=== PATIENT | female | born 1960 | race Caucasian/White ===

== ENCOUNTER 2016-12-06 00:51 | Day surgery (SDC) | payer OTHER ==
[2016-12-06] VITALS (11 sets, daily range): BP systolic 113–122; BP diastolic 58–63; PULSE 66–73; RESP 16–17; O2SAT 93–97
[~2016-12-06 00:51] MED LIST: ASPI-973 PO; BISA10SU61 RC; CITA20TA PO; DULO30CA50 PO; FLAV3.7O MC; GABA-502 PO; HYDR-4003 PO; INSU100C11 SUBQ; INSU100I13 SUBQ; OMEP20CA11 PO; PHEN1TAB PO; PROM25TA14 PO; TURM500C7 PO
[2016-12-06] MEDS ORDERED: 0.9% Sodium Chloride 1,000 ML IV ONE ×2 (06:40→16:02)
[2016-12-06 13:40] LABS: BASOPHILS % (AUTO) 0.2 % (0-3); EOSINOPHILS % (AUTO) 1.7 % (0-5); MONOCYTES % (AUTO) 8.3 % (4-12); Mean Corpuscular Hemoglobin 27.9 pg (27.0-35.0); Mean Corpuscular Volume 84.7 fL (81-100); NEUTROPHILS % (AUTO) 66.9 % (40-74); Platelet Count 387 bil/L (150-400)
[2016-12-06 13:53] LABS: INR 0.95 ratio
[2016-12-06] MEDS ORDERED: CINN1CAP PO (13:59)
[2016-12-06] MEDS ORDERED: 0.9% Sodium Chloride 1,000 ML ONE (14:35)
[2016-12-06] MEDS ORDERED: Heparin 5,000 Units/500 mL NS Premix IV ONE (15:10)
[2016-12-06] MEDS ORDERED: Heparin 1,000 Units/500 mL NS Premix IV ONE (15:10)
--- NOTE | 2016-12-06 15:15 | NUR ---
Admitted today for an heart cath today for ongoing chest pressure that has been happening for months and a + stress test study. Pt understands today's procedure and is ready to go to manufacturing laborer. NSR rates in the 70's.
[2016-12-06] MEDS ORDERED: fentaNYL-PF 50 mCg/mL 2 mL Inj ONE (15:18)
[2016-12-06] MEDS ORDERED: HYDROcodone-APAP 5-325 mg Tablet PO PRN (16:05)
[2016-12-06] MEDS ORDERED: Ondansetron 2 mg/mL 2 mL Inj IVPUSH PRN (16:05)
--- NOTE | 2016-12-06 16:31 | PCM.CVCATH ---
Cardiac Cath Report Date of Service Dec 06, 2016 Primary Indication This is a 56-year-old female with chest pain and recent myocardial perfusion study showing partially reversible perfusion defect. Patient is here for coronary angiogram to delineate her coronary anatomy and decide on long-term management. Procedure 1. Left heart catheterization 2. Left ventricular angiogram 3. Selective coronary angiogram 4. Right femoral angiogram Vascular Access Right common femoral artery Procedure Details The patient was brought into the catheterization laboratory. The patient was nothing by mouth since midnight. The patient was prepped and sterilized in the appropriate fashion. Local anesthetic was given to the right groin region with lidocaine 1%. A percutaneous stick to the right groin region with an 18-gauge Seldinger needle was attempted. A 6 Lao sheath was inserted into the right femoral artery. A 6 Lao FL 4 diagnostic catheter was advanced and engaged into the left main. The left coronary angiography was performed in multiple views. The catheter was exchanged over the wire for a 6 Lao FR4 diagnostic catheter. The catheter was engaged in the right coronary ostium and the right coronary angiography was performed in multiple views. The catheter was removed over the wire and exchanged for 6 Lao angle pigtail catheter. LV hemodynamics were recorded. Left ventricular angiography was performed at 12 mL /s for total 30 mL of contrast. LV pullback was performed. All catheters were removed. The right femoral angiogram was performed to evaluate for closure device. Hemostasis was obtained with Exoseal. The patient was transferred back to special observation unit for post procedural monitoring. There were no immediate complications. Total fluoroscopy time: 2.9 minutes Total fluoroscopy dosage: 829 mGy Estimated blood loss: 5 mL Total contrast: 50 mL Medications/Fluoro Time See procedure log Findings 1. Hemodynamics: The left ventricular systolic pressure was estimated at 133 mmHg and the left ventricular end-diastolic pressure was estimated at 22 mmHg. There is no significant gradient during pullback. The aortic systemic pressure was 135/66 mmHg with a mean arterial pressure of 94 mmHg. 2. Selective coronary angiography: A. Left main: There artery has minimal distal disease. It bifurcates into the left anterior and left circumflex arteries. B. Left anterior descending artery: This artery has no evidence of significant disease. C. Left circumflex artery: This artery is a nondominant vessel. It has mild luminal irregularities. D. Right coronary artery: This artery is dominant. It provides the posterior descending artery. In the midportion there is a 30-40% stenosis. Otherwise the rest of the RCA has mild luminal irregularities. 3. Left ventricular angiogram: The ejection fraction is around 60-65 %. There is no appreciable LV wall motion abnormalities. 4. Right femoral angiogram: There is no evidence of significant disease. Summary 1. No evidence of significant coronary disease that would cause ischemia. 2. Normal LV ejection fraction with normal LV wall motion. 3. Increased left ventricular end-diastolic pressures. Recommendations Continue with risk factor modification. Patient does not require any mechanical intervention at this point. I will like for her to come back and see me in about 4-6 weeks. copies to: Disha Butler MD, Oscar J MD Dec 06, 2016 16:31
--- NOTE | 2016-12-06 17:07 | NUR ---
Returned from microbiological laboratory technician at 1630 with a right access femoral artery closed with Exoseal. Diagnostic heart cath only. Pt is sleeping soundly, but responds to voice and follows commands. , "Jonas" is at bedside and understands plan of care. NSR no ectopy.
[2016-12-06] MEDS ORDERED: ATOR20TA65 PO (18:40)
[2016-12-06] MEDS ORDERED: METO25TA6 PO (18:40)
--- NOTE | 2016-12-06 19:21 | NUR ---
Pt discharged to home, ambulatory, accompanied by spouse. Pt's Rt groin puncture site CDI with no bleeding/hematoma noted, VSS, IV's discontinued. Pt given all discharge instructions and follow up instructions, pt had no further questions at time of d/c.
== END 2016-12-06 23:59 | disposition home or self-care (01) ==
LOC: SOUO 00:51
PROVIDERS: ATTEND Internal Medicine Cardiovascular Disease
DX: R93.1 Abnormal findings on diagnostic imaging of heart and coronary circulation (principal); R07.9 Chest pain, unspecified; E11.9 Type 2 diabetes mellitus without complications; F32.9 Major depressive disorder, single episode, unspecified; G25.81 Restless legs syndrome; E78.5 Hyperlipidemia, unspecified; Z87.891 Personal history of nicotine dependence; Z79.4 Long term (current) use of insulin
CPT/HCPCS: 36415; 80048; 85025; 85610; 93458; 99152; 99153; C1760; C1769; J1644; J2060; J2250; J3010; J7030; Q9967